=== PATIENT | female | born 1980 | race Caucasian/White ===

== ENCOUNTER 2023-04-30 10:16 | Emergency (ER) | payer BC, MEDICAID ==
[~2023-04-30] VITALS: Ht 172.7 cm; Wt 93.0 kg
[~2023-04-30 10:16] MED LIST: DEPO SHOT
[2023-04-30 10:18] VITALS: BP_SYST 116; BP_SYST 128; BP_DIAS 64; BP_DIAS 95; PULSE 66; PULSE 89; RESP 18; TEMP 98.6; O2SAT 100
[2023-04-30 10:42] VITALS: BP 128/64; PULSE 89; RESP 18; TEMP 98.6; O2SAT 100
== END 2023-04-30 10:42 | disposition home or self-care (01) ==
LOC: MED 10:16
DX: H00.014 Hordeolum externum left upper eyelid (principal); Z79.899 Other long term (current) drug therapy
CPT/HCPCS: 99281

== ENCOUNTER 2023-05-02 09:01 | Emergency (ER) | payer BC ==
[~2023-05-02] VITALS: Ht 172.7 cm; Wt 94.6 kg
[2023-05-02 09:15] VITALS: BP 129/82; PULSE 81; RESP 19; TEMP 98.3; O2SAT 98
[2023-05-02] MEDS ORDERED: ERYT5OIN51 OP (09:36)
== END 2023-05-02 09:51 | disposition home or self-care (01) ==
LOC: MED 09:01
DX: H01.004 Unspecified blepharitis left upper eyelid (principal); Z79.899 Other long term (current) drug therapy
CPT/HCPCS: 99283